=== PATIENT | female | born 1965 | race Caucasian/White ===

== ENCOUNTER 2016-06-21 06:28 | Day surgery (SDC) | payer OTHER ==
[2016-06-21] MEDS ORDERED: PROPOFOL 20 ML IV ONE ×2 (07:59→08:18)
--- NOTE | 2016-06-28 14:20 | SURGPATH ---
[facility] [address] [place] [id number] Patient Name: JACKSON CABA MR#: [id number] : 1965 Gender: F Specimen #: [id number] Collected: 06/21/2016 Received: 06/22/2016 Reported: 06/25/2016 Submitting Phys: CHERRY PERLA Copy To Phys: [facility] Clinical History / Pre-Operative Diagnosis: Screening colonoscopy Specimen Source / Surgical Procedure Performed: Sigmoid polyp biopsy at 10 cm Interpretation: COLON, SIGMOID 10 CM, BIOPSY: - HYPERPLASTIC POLYP. - NO EVIDENCE OF ADENOMATOUS CHANGE OR MALIGNANCY. Electronically Signed Out Jared Grove M.D., Ph.D. Gross Description: The specimen is received in a formalin filled container labeled with the patient's name and "sigmoid polyp biopsy at 10 cm". A single mark biopsy is 0.4 cm. Totally embedded in one cassette. Mark Worrell PKeyanna Microscopic Description: Examination of multiple levels from the sigmoid colon biopsy at 10 cm shows a single fragment of colonic mucosa with dilated and hyperplastic glands. There is no evidence of adenomatous change or malignancy. 1: [id number] K63.5
== END 2016-06-21 09:35 | disposition home or self-care (01) ==
LOC: SDC 06:28
PROVIDERS: ATTEND Family Medicine
DX: Z12.11 Encounter for screening for malignant neoplasm of colon (principal); K64.4 Residual hemorrhoidal skin tags; K57.30 Diverticulosis of large intestine without perforation or abscess without bleeding